=== PATIENT | male | born 1995 | race Hispanic/Latino ===

== ENCOUNTER 2020-06-24 20:21 | Emergency (ER) | payer SELFPAY ==
[2020-06-24] MEDS ORDERED: Ibuprofen 800 MG TAB ONE (21:14)
[2020-06-24] MEDS ORDERED: Dexamethasone 4 mg/ml Vial ONE (21:15)
[2020-06-24] MEDS ORDERED: Benzonatate 100 MG CAP ONE (21:15)
== END 2020-06-24 21:36 | disposition home or self-care (01) ==
LOC: MADERS 20:21
DX: J20.8 Acute bronchitis due to other specified organisms (principal)
CPT/HCPCS: 71046; J1100